=== PATIENT | male | born 1950 | race Caucasian/White ===

== ENCOUNTER 2020-09-05 14:01 | Outpatient (CLI) | payer MEDICARE, SELFPAY ==
--- NOTE | ~2020-09-05 | CT_ITS ---
EXAMINATION: CT chest abdomen wo con DATE: 09/05/2020 14:26 INDICATION: Solitary pulmonary nodule TECHNIQUE: Computed tomography (CT) of the chest and abdomen was performed without intravenous contra st. Automated exposure control and iterative reconstruction technique were employed. Exam dose: 534. 41 mGy-cm total exam DLP. COMPARISON: 08/17/2019 CT lung screening FINDINGS: CHEST CT: Stable mild bilateral apical pulmonary scarring since 08/17/2019. No pulmonary infiltrate or consolidation or pulmonary mass lesion is noted otherwise. There are very prominent calcified nodes in the right paratracheal and pretracheal and subcarinal are as in addition to calcified pulmonary granuloma and calcified hepatic and splenic granulomas, consist ent with old granulomatous disease. Thoracic aortic and great vessel and coronary artery calcifications. Normal heart size. No thoracic aortic aneurysm. No hilar or mediastinal mass lesion or lymphadenopath y. No pericardial or pleural effusion. ABDOMEN CT: The liver, gallbladder, spleen are unremarkable other than the multiple calcified hepatic and splenic granulomas as noted. No bile duct or pancreatic duct dilatation. No pancreatic mass lesion or calcif ication. Normal morphology of the adrenal glands. Probable 11 mm anterior mid right renal cyst Approximately 7 and 9 mm hyperdense lesions of the lateral aspect of the mid to lower left kidney, pr obably hyperdense cysts. No renal or proximal ureteral calculus or hydroureteronephrosis. There is extensive calcification of the abdominal aorta and common iliac arteries; no abdominal aorti c aneurysm. No intraperitoneal or retroperitoneal mass lesion or adenopathy or ascites. Diverticulosis of the colon; no CT evidence of diverticulitis. No bowel obstruction or intraperitonea l free air is evident. Very small fat-containing umbilical hernia. There are 2 focal sclerotic lesions along the anterior aspect of the right fifth rib which were not p resent on 12/13/2011. No other new sclerotic lesions are noted. If there is concern for osteosclerotic metastatic disease for example with prostate cancer, consider radiographic bone scan. Prominent degenerative disease and lower cervical spine. Stable small lucent area in the right posterior T1 vertebral body, not significant change since 2011, most consistent with benign process. IMPRESSION: Stable mild bilateral apical pulmonary scarring Old granulomatous disease Probable bilateral renal cysts Diverticulosis of the colon 2. Focal sclerotic lesions of the right fifth rib, not present on 12/13/2011. If clinically appropriat e, consider radionuclide bone scan to exclude osteosclerotic metastatic disease secondary to prostate cancer for example. Reviewed, dictated and finalized at [facility]. Reviewed, dictated and finalized at location A. SSAYIST IMPRESSION: Stable mild bilateral apical pulmonary scarring Old granulomatous disease Probable bilateral renal cysts Diverticulosis of the colon 2. Focal sclerotic lesions of the right fifth rib, not present on 12/13/2011. If clinically appropriate, consider radionuclide bone scan to exclude osteosclero tic metastatic disease secondary to prostate cancer for example.
== END 2020-09-05 14:02 | disposition home or self-care (01) ==
PROVIDERS: PCP Family Medicine; Visit Provider Nurse Practitioner
DX: R91.1 Solitary pulmonary nodule (principal); Z13.6 Encounter for screening for cardiovascular disorders; K57.30 Diverticulosis of large intestine without perforation or abscess without bleeding
CPT/HCPCS: 71250; 74150

== ENCOUNTER 2020-09-20 09:29 | Outpatient (CLI) | payer MEDICARE, SELFPAY ==
--- NOTE | ~2020-09-20 | NM_ITS ---
NM bone scan whole body INDICATION: Sclerotic lesion right fifth rib on recent CT TECHNIQUE: The patient was injected with 26.4 mCi Tc 99m HDP. Gamma camera images of the region of i nterest and whole body were obtained. COMPARISON: CT dated 09/05/2020 FINDINGS: There is mild focal uptake in ribs bilaterally. There is moderate symmetric uptake in the s houlders, wrists and hands as well as the right ankle and foot, likely secondary to degenerative join t disease. No other foci of abnormal uptake are identified. IMPRESSION: 1: Focal uptake in a few ribs bilaterally which may be due to posttraumatic change, although metasta tic disease is not excluded if there is a known history of malignancy (i.e. prostate cancer). 2: Multiple joints exhibit increased radiotracer uptake, consistent with degenerative joint disease. Reviewed, dictated and finalized at location A. RUMENT ASSEMBLY SUPERVISOR IMPRESSION: 1: Focal uptake in a few ribs bilaterally which may be due to posttraumatic ch lynda, although metastatic disease is not excluded if there is a known history o f malignancy (i.e. prostate cancer). 2: Multiple joints exhibit increased radiotracer uptake, consistent with degene rative joint disease.
== END 2020-09-20 09:30 | disposition home or self-care (01) ==
PROVIDERS: PCP Family Medicine; Visit Provider Nurse Practitioner
DX: M89.50 Osteolysis, unspecified site (principal)
CPT/HCPCS: 78306; A9561

== ENCOUNTER 2020-11-28 11:27 | Outpatient (CLI) | payer MEDICARE, SELFPAY ==
--- NOTE | ~2020-11-28 | XR_ITS ---
EXAMINATION: XR sinus min 3V EXAM DATE: 11/28/2020 11:44 INDICATION: R51.9 - Headache, unspecified,, progressing for last year. TECHNIQUE: Frontal, Lisha's, lateral, submentovertex projections of the paranasal sinuses. There is no prior study for comparison. FINDINGS: No appreciable sinus opacity but please note that mild mucoperiosteal disease difficult to detect by x-ray. No evidence of air-fluid levels on the submentovertex projection. Orbits and soft t issues are unremarkable. IMPRESSION: Unremarkable XR sinus min 3V exam. Reviewed, dictated and finalized at location A. ARD/STEWARDESS THIRD
== END 2020-11-28 11:28 | disposition home or self-care (01) ==
LOC: ANHIMG 11:30
PROVIDERS: PCP Family Medicine; Visit Provider Family Medicine
DX: R51.9 Headache, unspecified (principal)
CPT/HCPCS: 70220

== ENCOUNTER 2021-03-27 16:12 | Outpatient (CLI) | payer MEDICARE, SELFPAY ==
--- NOTE | ~2021-03-27 | XR_ITS ---
EXAMINATION: XR shoulder LT min 2V DATE: 03/27/2021 16:37 INDICATION: Left shoulder pain. TECHNIQUE: 4 views of left shoulder were obtained. COMPARISON: None. FINDINGS: Bone alignment is normal. No fracture. The glenohumeral joint is normal. There is moderate acromioclavicular joint osteoarthritis. There is calcific tendinitis of the rotator cuff. IMPRESSION: 1. Calcific tendinitis of the rotator cuff. 2. Moderate acromioclavicular joint osteoarthritis. Reviewed, dictated and finalized at location [facility].
[2021-03-27 17:30] LABS: Alanine Aminotransferase 21 U/L (4-50); Albumin Level 4.2 g/dL (3.5-5.1); Alkaline Phosphatase 71 U/L (38-126); Anion Gap 5 mmol/L (8-16); Aspartate Amino Transferase 32 U/L (17-59); Bilirubin,Total 0.3 mg/dL (0.2-1.3); Blood Urea Nitrogen 13 mg/dL (9-20); Carbon Dioxide 32 mmol/L (22-30); Chloride 99 mmol/L (98-107); Estimated Glomerular Filt Rate > 60; Glucose 80 mg/dL (75-110); Potassium 4.7 mmol/L (3.4-5.0); Sodium 136 mmol/L (137-145)
== END 2021-03-27 16:13 | disposition home or self-care (01) ==
LOC: ANHIMG 16:14
PROVIDERS: PCP Family Medicine; Visit Provider Family Medicine
DX: M19.012 Primary osteoarthritis, left shoulder (principal); E78.5 Hyperlipidemia, unspecified; M75.32 Calcific tendinitis of left shoulder
CPT/HCPCS: 36415; 73030; 80053

== ENCOUNTER 2021-10-31 01:45 | Day surgery (SDC) | payer MEDICARE, SELFPAY ==
[2021-10-22 09:35] VITALS: BMI 25.9
[2021-10-31 07:15] VITALS: BP 129/66; PULSE 100; RESP 18; TEMP 36.4; O2SAT 87; BMI 25.6
--- NOTE | 2021-10-31 07:28 | SUR.PREOP ---
0720-Pt O2 sat 87% at room air. Pt states he does not use O2 at home. Informed Dr. Cuevas. Orders received to place on 2L O2. Will continue to monitor.
--- NOTE | 2021-10-31 07:33 | P.PNAN_ITS ---
Anes - Initial Pre Proc Eval Procedure: Operation Date: 10/31/21 08:45 Proposed Procedures p Screening Colonoscopy - Edmundo Ramirez MD Date/Time: 10/31/21 07:33 Surgeon: Edmundo Ramirez MD Pre Op Diagnosis: hx of colon polyps Patient Data Age: 71 Gender: M Height: 1.8 m Weight: 83.4 kg Last Vital Signs Temp 36.4 C L 10/31/21 07:15 Pulse 100 10/31/21 07:15 Resp 18 10/31/21 07:15 BP 129/66 10/31/21 07:15 Pulse Ox 87 L 10/31/21 07:15 Allergies Allergy/AdvReac Type Severity Reaction Status Date / Time codeine Allergy Mild Other Verified 10/31/21 07:24 Home Medications Medication Instructions Recorded Confirmed Type aspirin [Adult Low Dose Aspirin] 81 mg PO DAILY 09/30/19 10/31/21 History atorvastatin 10 mg tablet 10 mg PO QHS #90 tablet 09/10/21 10/31/21 Rx fluticasone furoate 200 1 inh INHALATION DAILY #60 ea 10/01/21 10/31/21 Rx mcg-vilanterol 25 mcg/dose inhalation powder albuterol sulfate 90 mcg/actuation 2 inh INHALATION Q4-6H PRN #8.5 g 10/24/21 10/31/21 Rx aerosol inhaler Patient hx anesthesia problems: none Family hx anesthesia problems: none Results Review: All pre-operative results and documents have been reviewed as part of the pre-operative evaluation. [facility] Past Medical History Medical History Chronic headaches COPD with asthma History of colon polyps Hyperlipidemia Positive colorectal cancer screening using Cologuard test Pulmonary nodules stable on repeat CTs Wears glasses Family History Family History Mother Family history of malignant melanoma Social History Social History Smoking packs per day: 0.5 Smoking cigarettes per day: 10.0 Years smoked: 50 Smoking pack-years: 25.00 Smoking status: Current every day smoker Tobacco type: cigarettes and cigars Additional smoking assessment comments: 1 pack per day for approx 50 years Alcohol intake: current Drinks per week: 3 Substance use: never Substance use type: does not use Living arrangements: with family Gender identity (if verbalized by the patient): Male Spiritual care concerns: No Anes - Eval Final PreProcedure Day of Procedure 10/31/21 07:33 Patient weight: normal Heart: regular rate and rhythm Lungs: decreased breath sounds Airway: Mallampati scale class II Neurological: alert and oriented Last oral intake: >/= 8 hours ASA classification: III Emergent: no Anesthetic plan: proceed Anesthesia type and monitoring: general GIVS and standard monitoring Results Review: All pre-operative results and documents have been reviewed as part of the pre-operative evaluation. Informed Consent: The patient's anesthetic plan and its attendant risks and benefits were discussed with the patient/family/POA. Questions were solicited and answers provided to the satisfaction of the patient/family/POA.
[2021-10-31] MEDS: LACTATED RINGERS 1,000 ML 150 ML IV CONT (07:45)
--- NOTE | 2021-10-31 08:29 | PM.HPGS ---
History of Present Illness History of Present Illness Consent: Risks, benefits, and alternatives have been discussed and questions answered. Patient agrees to proceed with procedure. Chief complaint: hx of colon polyps Narrative: Navi Farris Sr. is a 71 year old male with large polyps removed 2 years ago. Review of Systems Constitutional: Constitutional: Denies headache(s) and Denies weakness Eyes: Eyes: Denies blurry vision ENT: Reports Normal hearing present, Denies headache(s) and Denies neck pain Cardiovascular: Cardiovascular: Denies chest pain and Denies dyspnea Respiratory: Respiratory: Denies dyspnea Gastrointestinal: Gastrointestinal: Reports no additional gastrointestinal complaints Genitourinary: Genitourinary: Denies dysuria Musculoskeletal: Musculoskeletal: Denies neck pain Integumentary/Breasts: Skin/Breast: Denies dry skin Neurologic: Reports Normal hearing present, Denies headache(s) and Denies weakness Psychiatric: Psychiatric: Denies anxiety Endocrine: Endocrine: Denies change in body appearance Hematologic/Lymphatic: Hematologic/Lymphatic: Denies easy bleeding Allergic/Immunologic: Allergic/Immunologic: Denies urticaria PMFSH Past Medical History Medical History (Updated 10/31/21 @ 08:30 by Edmundo Ramirez MD) Adenomatous colon polyp Chronic headaches COPD with asthma History of colon polyps Hyperlipidemia Positive colorectal cancer screening using Cologuard test Pulmonary nodules stable on repeat CTs Wears glasses Family History Family History Mother Family history of malignant melanoma Social History Social History Smoking packs per day: 0.5 Smoking cigarettes per day: 10.0 Years smoked: 50 Smoking pack-years: 25.00 Smoking status: Current every day smoker Tobacco type: cigarettes and cigars Additional smoking assessment comments: 1 pack per day for approx 50 years Alcohol intake: current Drinks per week: 3 Substance use: never Substance use type: does not use Living arrangements: with family Gender identity (if verbalized by the patient): Male Spiritual care concerns: No Meds Home Medications and Allergies Home Medications Medication Instructions Recorded Confirmed Type aspirin [Adult Low Dose Aspirin] 81 mg PO DAILY 09/30/19 10/31/21 History atorvastatin 10 mg tablet 10 mg PO QHS #90 tablet 09/10/21 10/31/21 Rx fluticasone furoate 200 1 inh INHALATION DAILY #60 ea 10/01/21 10/31/21 Rx mcg-vilanterol 25 mcg/dose inhalation powder albuterol sulfate 90 mcg/actuation 2 inh INHALATION Q4-6H PRN #8.5 g 10/24/21 10/31/21 Rx aerosol inhaler Allergies Allergy/AdvReac Type Severity Reaction Status Date / Time codeine Allergy Mild Other Verified 10/31/21 07:24 Vital Signs Vital Signs - 24 hr 10/31/21 07:15 Temperature 97.5 F L Pulse Rate 100 Respiratory Rate 18 Blood Pressure 129/66 Pulse Oximetry 87 L Exam Const: General: comfortable and no acute distress HENMT: General nose exam: Normal nares present Eyes: General: appearance normal, both eyes and all related structures Neck: Neck: no JVD Resp: Auscultation: clear to auscultation bilaterally Cardio: Rate: regular rate Rhythm: regular rhythm GI: Inspection: non-distended GI Palp: Yes Soft to palpation Skin: General skin exam: normal color Neuro: General: gait normal Speech: normal speech Extrem: General: normal to inspection Psych: Mental Status: mental status grossly normal Assessment and Plan Assessment and plan (1) Adenomatous colon polyp: Code(s): D12.6 - Benign neoplasm of colon, unspecified Status: Acute Assessment and Plan: colonoscopy
[2021-10-31 09:06] VITALS: BP 122/57; PULSE 90; RESP 18; O2SAT 94
[2021-10-31 09:16] VITALS: BP 120/82; PULSE 86; RESP 20; O2SAT 90
[2021-10-31 09:26] VITALS: BP 123/86; PULSE 88; RESP 20; O2SAT 86
--- NOTE | 2021-10-31 09:45 | SUR.PHASEII ---
PT 95% ON 3L, RUNNING 86% WHEN WEANED TO ROOM AIR, COUGHING OCCASIONALLY. PT DENIES DIFFICULTIES. PT STATES HE FEELS LIKE HE IS BREATHING LIKE NORMAL, HOW HE DOES AT HOME. DR IRIZARRY NOTIFIED AND NO NEW ORDERS, PT MAY BE DISCHARGED AND FOLLOW UP WITH PRIMARY DOCTOR. PT ENCOURAGED TO MONITOR SELF AND BREATHING AT HOME AND FOLLOW UP WITH PRIMARY DOCTOR. PT STATES UNDERSTANDING.
== END 2021-10-31 09:50 | disposition home or self-care (01) ==
PROVIDERS: PCP Family Medicine; Visit Provider Internal Medicine Gastroenterology
PROC: 0DJD8ZZ Inspection of Lower Intestinal Tract, Via Natural or Artificial Opening Endoscopic (ICD-10-PCS; CPT 45378; principal; 2021-10-31 08:45)
DX: Z12.11 Encounter for screening for malignant neoplasm of colon (principal); D12.2 Benign neoplasm of ascending colon; D12.3 Benign neoplasm of transverse colon; D12.4 Benign neoplasm of descending colon; K63.5 Polyp of colon; K57.30 Diverticulosis of large intestine without perforation or abscess without bleeding; K64.8 Other hemorrhoids; J44.9 Chronic obstructive pulmonary disease, unspecified; E78.5 Hyperlipidemia, unspecified; Z79.82 Long term (current) use of aspirin; Z79.51 Long term (current) use of inhaled steroids; F17.210 Nicotine dependence, cigarettes, uncomplicated; F17.290 Nicotine dependence, other tobacco product, uncomplicated
CPT/HCPCS: 45385; 88305; J2704; J7120

== ENCOUNTER 2021-11-02 12:53 | Emergency (ER) | payer MEDICARE, SELFPAY ==
--- NOTE | ~2021-11-02 | XR_ITS ---
XR chest 2V DATE: 11/02/2021 13:47 INDICATION: Cough TECHNIQUE: PA and lateral views COMPARISON: 08/18/2018 two-view chest 08/17/2019 CT lung screening FINDINGS: There is patchy consolidating infiltrate in the right upper lobe since prior examinations. The lungs are hyperinflated but otherwise clear of infiltrate or consolidation. No pleural fluid is n oted. No pneumothorax. Normal heart size. Aortic arch calcification. Calcified mediastinal nodes, consistent with old granul omatous disease. Diffuse osteopenia. IMPRESSION: Prominent right upper lobe infiltrate, new since prior examinations, likely due to pneumo aviva Bilateral hyperinflation, suggesting possible COPD Aortic atherosclerosis Old granulomatous disease Diffuse osteopenia Reviewed, dictated and finalized at location [facility]. TREATMENT TECHNICIAN IMPRESSION: Prominent right upper lobe infiltrate, new since prior examinations , likely due to pneumonia Bilateral hyperinflation, suggesting possible COPD Aortic atherosclerosis Old granulomatous disease Diffuse osteopenia
[2021-11-02 13:04] VITALS: BP 135/64; PULSE 84; RESP 16; TEMP 36.6; O2SAT 92
--- NOTE | 2021-11-02 13:42 | ED.URI ---
HPI - URI/Sore Throat General Chief Complaint: Upper Respiratory Infection Stated Complaint: COUGH/CONGESTION/SOB Source: patient Mode of arrival: ambulatory Limitations: no limitations History of Present Illness HPI Narrative: 71-year-old male with a history of COPD and chronic bronchitis presented for complaint of productive cough for over 1 week. He states he is producing a large amount of mucus and has difficulty sleeping at night due to the cough. Endorses some sinus congestion, increased shortness of breath, chills, and decreased activity. Patient is a half a pack per day smoker, but has not been smoking for at least a week. He states he had colonoscopy 3 days ago, and was told his oxygen was 90%. Has been using albuterol inhaler and Breo as directed. Of note he endorses dysuria, and is scheduled with a urologist in December for PSA of 7. Denies chest pain, hemoptysis, heart racing, nausea, vomiting, diarrhea, dizziness or syncope.. MD elicited complaint: cough Related Data Home Medications Medication Instructions Recorded Confirmed aspirin [Adult Low Dose Aspirin] 81 mg PO DAILY 09/30/19 10/31/21 Allergies Allergy/AdvReac Type Severity Reaction Status Date / Time codeine Allergy Mild Other Verified 10/31/21 07:24 Review of Systems Review of Systems: CONSTITUTIONAL: Endorses chills, Denies sweats, fever. EYES: Denies visual changes, redness, or discharge. ENT: Reports rhinorrhea, congestion CARDIOVASCULAR: Denies chest pain, palpitations, or edema. RESPIRATORY: Reports cough, dyspnea. GASTROINTESTINAL: Denies abdominal pain, nausea, vomiting, diarrhea SKIN: Denies rash or itching. MUSCULOSKELETAL: denies myalgia. NEUROLOGIC: Denies headache. [facility] Past Medical History Medical History (Updated 11/02/21 @ 14:11 by Carolyn Mathis APRN) Adenomatous colon polyp Chronic headaches COPD with asthma History of colon polyps Hyperlipidemia Positive colorectal cancer screening using Cologuard test Pulmonary nodules stable on repeat CTs Wears glasses Family History Family History Mother Family history of malignant melanoma Social History Social History Smoking packs per day: 0.5 Smoking cigarettes per day: 10.0 Years smoked: 50 Smoking pack-years: 25.00 Smoking status: Current every day smoker Tobacco type: cigarettes and cigars Additional smoking assessment comments: 1 pack per day for approx 50 years Alcohol intake: current Drinks per week: 3 Substance use: never Substance use type: does not use Gender identity (if verbalized by the patient): Male Spiritual care concerns: No Exam Narrative: GENERAL: Ill-appearing, nontoxic no acute distress. HEAD: Normocephalic EYES: PERRLA, conjunctivae clear ENT: Mucous membranes moist. TM pearly shah with dull light reflex bilaterally; no tragal tenderness. Oropharynx erythematous without lesions or exudate, no drooling, no hoarseness, no trismus, uvula midline. NECK: Supple. No lymphadenopathy CHEST: Expiratory Wheezing, No respiratory distress, speaks in full sentences. HEART: Regular rate and rhythm. No murmur heard. SKIN: Warm, dry, no rash. NEURO: Alert and oriented x3. PSYCH: Normal mood and affect Course Course Emergency Course: Reviewed xray with pt, abx and steroid prescribed, advised otc cough syrup prn. urine unremarkable, will culture given hx elevated psa. Patient is aware of diagnosis, understands and agrees to treatment plan. Anticipatory guidance given. Patient agrees to follow-up as directed and is aware of reasons to seek care at the emergency department. Portions of this record may have been created with voice recognition software Level of Care: Express Care Visit Vital Signs Vital signs: Vital Signs Temperature 98 F 11/02/21 13:04 Pulse Rate 84 11/02/21 13:04 Respiratory Rate 16 11/02/21 1
== END 2021-11-02 14:24 | disposition home or self-care (01) ==
PROVIDERS: Emergency Provider Nurse Practitioner Family; PCP Family Medicine
DX: J18.1 Lobar pneumonia, unspecified organism (principal); F17.210 Nicotine dependence, cigarettes, uncomplicated; F17.290 Nicotine dependence, other tobacco product, uncomplicated; J44.9 Chronic obstructive pulmonary disease, unspecified; E78.5 Hyperlipidemia, unspecified; Z79.82 Long term (current) use of aspirin
CPT/HCPCS: 71046; 81003; 99213; G0463

== ENCOUNTER 2022-08-08 10:20 | Emergency (ER) | payer MEDICARE, SELFPAY ==
[2022-08-08 10:28] VITALS: BP 126/58; PULSE 97; RESP 24; TEMP 36.6; O2SAT 94
--- NOTE | 2022-08-08 10:29 | ED.URI ---
HPI - URI/Sore Throat General Chief Complaint: Upper Respiratory Infection Stated Complaint: COUGH/CONGESTION/NOT SLEEPING Time Seen by Provider: 08/08/22 10:36 Source: patient and RN notes reviewed Mode of arrival: ambulatory Limitations: no limitations History of Present Illness HPI Narrative: 71-year-old male presents with concern for productive cough that started on Friday. He reports chills. Denies fever, sweats, nasal congestion or rhinorrhea. Reports he gets similar illness once a year MD elicited complaint: cough Related Data Home Medications Medication Instructions Recorded Confirmed aspirin 81 mg tablet,delayed 81 mg PO DAILY 09/30/19 03/14/22 release (Adult Low Dose Aspirin) fluticasone furoate 200 inhalation 08/08/22 mcg-vilanterol 25 mcg/dose inhalation powder (Breo Ellipta) Allergies Allergy/AdvReac Type Severity Reaction Status Date / Time codeine Allergy Mild Other Verified 08/08/22 10:27 Review of Systems Review of Systems: CONSTITUTIONAL: Reports malaise, chills. Denies sweats, or fever. EYES: Denies visual changes, redness, or discharge. ENT: Denies rhinorrhea, congestion, sinus pain, otalgia and sore throat. CARDIOVASCULAR: Denies chest pain, palpitations, or edema. RESPIRATORY: Reports cough. Denies dyspnea. GASTROINTESTINAL: Denies abdominal pain, nausea, vomiting, diarrhea SKIN: Denies rash or itching. MUSCULOSKELETAL: Denies myalgia. NEUROLOGIC: Denies headache. All systems reviewed & are unremarkable except as noted in HPI and below PMFSH Past Medical History Medical History Adenomatous colon polyp Chronic headaches Community acquired pneumonia (~10/2021) COPD with asthma Erectile dysfunction History of colon polyps Hyperlipidemia Positive colorectal cancer screening using Cologuard test Prostate cancer (~01/2022) Pulmonary nodules stable on repeat CTs Wears glasses Family History Family History Mother Family history of malignant melanoma Social History Social History Smoking packs per day: 0.25 Smoking cigarettes per day: 5.0 Years smoked: 50 Smoking pack-years: 12.50 Smoking status: Current some day smoker Tobacco type: cigarettes and cigars Additional smoking assessment comments: 1 pack per day for approx 50 years Alcohol intake: current Drinks per week: 3 Substance use: never Substance use type: does not use Gender identity (if verbalized by the patient): Male Spiritual care concerns: No Comments At time of signature, agree with nursing past medical, surgical, social and family history. There is no relevant family history pertinent to the presenting complaint Exam Narrative: GENERAL: Well-appearing, well-nourished, and in no acute distress. HEAD: Normocephalic EYES: PERRLA, conjunctivae clear ENT: Nares clear. Mucous membranes moist. TM pearly shah with dull light reflex bilaterally; no tragal tenderness. Oropharynx not erythematous without lesions. Tonsils not enlarged and without exudate, no drooling, no hoarseness, no trismus, uvula midline. NECK: Supple. No lymphadenopathy CHEST: Scattered rhonchi, expiratory wheeze, aeration poor. No Rales, or stridor. No respiratory distress, speaks in full sentences. HEART: Regular rate and rhythm. No murmur heard. SKIN: Warm, dry, no rash. NEURO: Alert and oriented x3. PSYCH: Normal mood and affect Course Course Emergency Course: Patient is aware of diagnosis, understands and agrees to treatment plan. Anticipatory guidance given. Patient agrees to follow-up as directed and is aware of reasons to seek care at the emergency department. Portions of this record may have been created with voice recognition software Level of Care: Express Care Visit Reevaluation(s) Reevaluation #1: Aeration improved, lung sounds
[2022-08-08] MEDS: ALBUTEROL SULFATE NEB 2.5 MG/3 ML INH INHALATION (10:48)
[2022-08-08] MEDS: IPRATROPIUM BR 0.02% INH SOLN 0.5 MG/2.5 ML VIAL INHALATION (10:49)
[2022-08-08 10:50] VITALS: PULSE 84; RESP 20; O2SAT 94
== END 2022-08-08 11:19 | disposition home or self-care (01) ==
PROVIDERS: Emergency Provider Nurse Practitioner; PCP Family Medicine
DX: J44.1 Chronic obstructive pulmonary disease with (acute) exacerbation (principal); E78.5 Hyperlipidemia, unspecified; Z85.46 Personal history of malignant neoplasm of prostate; Z79.82 Long term (current) use of aspirin
CPT/HCPCS: 87804; 94640; 99213; G0463

== ENCOUNTER 2022-09-24 12:49 | Outpatient (CLI) | payer MEDICARE, SELFPAY ==
--- NOTE | ~2022-09-24 | CT_ITS ---
EXAMINATION: CT lung screening DATE: 09/24/2022 13:09 INDICATION: Personal history of nicotine dependence, current smoker with 50 pack year history TECHNIQUE: Computed tomography (CT) of the chest was performed without intravenous contrast. The dose -length product (DLP) was 103.55 mGy-cm. Automated exposure control and iterative reconstruction tech [email or web address] were employed. COMPARISON: 08/17/2019 FINDINGS: There is mild emphysema. Scarring is noted in the lung apices. The lungs are free of acute opacities. No pleural effusion or pneumothorax. No pathologically enlarged thoracic lymph nodes are i dentified. The heart size is normal. There are bulky calcified left hilar and mediastinal lymph nodes , consistent with old granulomatous disease. Punctate calcifications in otherwise normal appearing li cory and spleen likely represent healed granulomatous disease. IMPRESSION: 1. Lung-RADS category 2: Benign appearance or behavior. Continue annual screening with noncontrast lo w-dose chest CT in 12 months. Reviewed, dictated and finalized at location L. ESTATE ASSESSOR IMPRESSION: 1. Lung-RADS category 2: Benign appearance or behavior. Continue annual screeni ng with noncontrast low-dose chest CT in 12 months.
== END 2022-09-24 12:50 | disposition home or self-care (01) ==
PROVIDERS: PCP Family Medicine; Visit Provider Family Medicine
DX: Z12.2 Encounter for screening for malignant neoplasm of respiratory organs (principal); F17.210 Nicotine dependence, cigarettes, uncomplicated
CPT/HCPCS: 71271

== ENCOUNTER 2023-02-27 09:05 | Emergency (ER) | payer MEDICARE, SELFPAY ==
--- NOTE | ~2023-02-27 | XR_ITS ---
EXAMINATION: XR chest 2V DATE: 02/27/2023 09:36 INDICATION: Shortness of breath. Cough. TECHNIQUE: Frontal and lateral views of the chest were obtained on 3 radiographs. COMPARISON: Chest 2 views 11/02/2021, chest CT 09/24/2022 FINDINGS: The lungs are hyperexpanded with reticular opacities, consistent with emphysema. There are mild airspace opacities in right lower lobe. No pleural effusion or pneumothorax. The heart size is n ormal. Calcified mediastinal lymph nodes are consistent with old granulomatous disease. IMPRESSION: 1. Mild airspace opacities in right lower lobe, consistent with atelectasis versus pneumonia. 2. Emphysema. Reviewed, dictated and finalized at location A. IMPRESSION: 1. Mild airspace opacities in right lower lobe, consistent with atelectasis cory laurence pneumonia. 2. Emphysema.
[2023-02-27 09:18] VITALS: BP 162/58; PULSE 79; RESP 24; TEMP 37.3; O2SAT 86
--- NOTE | 2023-02-27 09:40 | ED.URI ---
HPI - URI/Sore Throat General Chief Complaint: Shortness of Breath/Dyspnea Stated Complaint: shortness of breath,cough,congestion Time Seen by Provider: 02/27/23 09:23 Source: patient and RN notes reviewed Mode of arrival: ambulatory Limitations: no limitations History of Present Illness HPI Narrative: Patient presents today complaining of a 2-3 day history productive cough, shortness of breath that is worse with nasal congestion. Patient states his home pulse ox showed 84% this morning. History of COPD. He has been using his albuterol inhaler, which helps minimally. He also uses Breo. He has not been taking any [id number] treatment for his symptoms prior to arrival. Related Data Home Medications Medication Instructions Recorded Confirmed aspirin 81 mg tablet,delayed 81 mg PO DAILY 09/30/19 09/12/22 release (Adult Low Dose Aspirin) Allergies Allergy/AdvReac Type Severity Reaction Status Date / Time codeine Allergy Mild Other Verified 02/27/23 09:14 Review of Systems Review of Systems: CONSTITUTIONAL: Denies body aches, fever, chills, or sweats. EYES: Denies visual changes, redness, or discharge. ENT: Denies rhinorrhea, sore throat, or otalgia.+ congestion CARDIOVASCULAR: Denies chest pain, palpitations, or edema. RESPIRATORY: + cough, shortness of breath GASTROINTESTINAL: Denies abdominal pain, nausea, vomiting, or diarrhea. GENITOURINARY: Denies dysuria or hematuria. SKIN: Denies rash, itching, or wounds. MUSCULOSKELETAL: Denies back pain, joint pain, or myalgia. NEUROLOGIC: Denies headache, numbness, tingling, or weakness. PSYCH: Denies depression or anxiety. [facility] Past Medical History Medical History Community acquired pneumonia (~10/2021) COPD with asthma Erectile dysfunction History of colon polyps Hyperlipidemia Positive colorectal cancer screening using Cologuard test Prostate cancer (~01/2022) Pulmonary nodules stable on repeat CTs Wears glasses Family History Family History Mother Family history of malignant melanoma Social History Social History Smoking packs per day: 0.25 Smoking cigarettes per day: 5.0 Years smoked: 50 Smoking pack-years: 12.50 Smoking status: Current some day smoker Tobacco type: cigarettes and cigars Additional smoking assessment comments: 1 pack per day for approx 50 years Alcohol intake: current Drinks per week: 3 Substance use: never Substance use type: does not use Lack of Transportation: No Lack of Food: Never True Current Housing: I Have Housing Concerned About Future Housing: No Difficulty Paying Gas/Electric Bills: No Difficulty Paying for Meds: No Currently Unemployed: No Education: High School Diploma/GED Difficulty w/ Childcare or Family Care: No Living arrangements: with family Additional living arrangements comments: Occupation/Education: retired Gender identity (if verbalized by the patient): Male Sexual Orientation (if Verbalized by the Patient): Straight or Heterosexual Spiritual care concerns: No Agree to blood products: Yes Comments At time of signature, I have reviewed and agree with nursing past medical, surgical, social and family history unless otherwise noted. Please see nursing chart for further information. There is no relevant family history pertinent to the presenting complaint Exam Narrative: GENERAL: Well-appearing, well-nourished, and in no acute distress. HEAD: Normocephalic, atraumatic. EYES: EOMI. No redness or drainage. Conjunctivae normal. ENT: Mucous membranes pink and moist. Nares congested. No rhinorrhea. NECK: Normal AROM. Supple. No lymphadenopathy. CHEST: No respiratory distress. Lungs diminished. Expiratory wheezing in the upper lobes. HEART: Regular rate an
--- NOTE | 2023-02-27 09:42 | PC.NURSE ---
0942 Patient returned from xray and connected to oxygen 2L/min-pulse ox increased to 90%.
[2023-02-27] MEDS: IPRATROPIUM BR 0.02% INH SOLN 0.5 MG/2.5 ML VIAL INHALATION (09:59)
[2023-02-27] MEDS: ALBUTEROL SULFATE NEB 2.5 MG/3 ML INH INHALATION (09:59)
[2023-02-27 10:00] VITALS: PULSE 68; RESP 24; O2SAT 93
[2023-02-27 10:20] VITALS: PULSE 72; RESP 20; O2SAT 97
== END 2023-02-27 10:35 | disposition home or self-care (01) ==
PROVIDERS: Emergency Provider Nurse Practitioner; PCP Family Medicine
DX: J44.1 Chronic obstructive pulmonary disease with (acute) exacerbation (principal); J18.1 Lobar pneumonia, unspecified organism; F17.210 Nicotine dependence, cigarettes, uncomplicated; F17.290 Nicotine dependence, other tobacco product, uncomplicated; E78.5 Hyperlipidemia, unspecified; Z85.46 Personal history of malignant neoplasm of prostate; Z79.82 Long term (current) use of aspirin
CPT/HCPCS: 71046; 94640; 99213; G0463

== ENCOUNTER 2023-05-08 09:59 | Outpatient (CLI) | payer MEDICARE, SELFPAY ==
--- NOTE | 2023-05-13 13:50 | P.PCNPFT_ITS ---
PFT Procedure Performed PFT Procedure Performed Spirometry with Pre/Post Bronchodilator Plethysmography (Lung Vol) Diffusing Cap (DLCO) Flow Vol Loop PFT Interpretation DOS: 05/08/2023 REQUESTING: Jose Garvin MD REASON FOR TESTING: COPD/hypoxia PULMONARY FUNCTION TESTS Results are reliable and reproducible. Spirometry: FEV1 is 1.51 L, 45% predicted, severely reduced. FVC is 3.55 L, 79%, within the normal range. FEV1/ FVC ratio 43%, reduced, consistent with airflow obstruction. After bronchodilator, there is a 7% drop in the FEV1, 1.40 L, 41%. There is a 6% drop in the FVC, 3.35 L, 74%. The ratio remains reduced, 42%. Lung volumes: Total lung capacity 9.54 L, 128%, elevated, consistent with mild hyperinflation. RV is 5.80 L, 225%, severely increased consistent with severe air trapping. RV/TLC is 61%, increased. Airway resistance is elevated, 4.02, 376%. Diffusion: DLCO is 18.9, 71%, low end of normal. DLCO/VA is 4.33, 114%, normal. Flow volume loop: Severe coving of the expiratory limb consistent with airflow obstruction. IMPRESSION: Severe obstructive ventilatory impairment without response to bronchodilator, mild hyperinflation, severe air trapping, borderline diffusion impairment which corrects for alveolar volume. Lack of response to bronchod ilator should not preclude use if clinically indicated. Comparison to 06/03/2017 PFT showed almost same results except that the prior study showed excellent response to bronchodilator, still had a severe obstructive ventilatory impairment; hyperinflation is new, increased RV and RV/TLC, increased Raw, normal DLCO. Olive Moseley MD
--- NOTE | 2023-05-13 14:05 | WPDSIXMINUTE ---
Six Minute Walk Procedure Procedure Performed Pulmonary Stress Test (6 min walk) Six Minute Walk Six Minute Walk: DATE OF SERVICE : 05/08/2023 REQUESTING: Jose Garvin MD REASON FOR TESTING: COPD/hypoxia SIX MINUTE WALK This test was conducted per ATS guidelines. The patient walked while breathing room air, and he did not use any walking aids. The initial saturation was 93%, and initial heart rate was 60 beats per minute. The patient walked with a 15 second rest at the 3 minute geovani. Even with the rest the patient completed 1200 ft/ 365.7 m. Saturation at the end of the test is 90%. Heart rate at the end of the study was 72 beats per minute. The lowest saturation recorded during this walk was 89% and the highest heart rate was 78 beats per minute at the 3 minute geovani. IMPRESSION: This is a normal study. The patient did not require supplemental oxygen with exertion. There is mild desaturation without hypoxemia. Distance walked is adequate for age. Olive Moseley MD
== END 2023-05-08 10:00 | disposition home or self-care (01) ==
PROVIDERS: PCP Family Medicine; Visit Provider Family Medicine
DX: J44.9 Chronic obstructive pulmonary disease, unspecified (principal); R09.02 Hypoxemia; R94.2 Abnormal results of pulmonary function studies
CPT/HCPCS: 94060; 94618; 94726; 94729

== ENCOUNTER → 2023-09-16 11:02 | Outpatient (CLI) | payer MEDICARE, SELFPAY ==
--- NOTE | ~2023-09-16 | XR_ITS ---
Clinical Indication: Upper respiratory infection PA and lateral views of the chest: Comparison: 02/27/2023 Findings: The lungs are clear, without evidence of focal consolidation or pleural effusion. Cardiome diastinal silhouette is within normal limits. Stable large calcified right paratracheal/right hilar l ymph nodes. Bones and soft tissues are unremarkable. Impression: No acute abnormality. Stable large calcified right hilar/right paratracheal lymph nodes. Reviewed, dictated and finalized at location . MANAGER Impression: No acute abnormality. Stable large calcified right hilar/right paratracheal lymph nodes.
== END ==
PROVIDERS: PCP Family Medicine; Visit Provider Family Medicine
DX: J06.9 Acute upper respiratory infection, unspecified (principal)
CPT/HCPCS: 71046

== ENCOUNTER 2023-09-18 08:49 | Inpatient (IN) | payer MEDICARE, SELFPAY ==
[2023-09-18] VITALS (20 sets, daily range): BP systolic 100–153; BP diastolic 42–66; PULSE 87–116; RESP 16–26; TEMP 37.2–39.1; O2SAT 86–100; BMI 28.1
--- NOTE | ~2023-09-18 | XR_ITS ---
EXAMINATION: XR chest 1V portable INDICATION: Hypoxia TECHNIQUE: Portable AP chest at 0914 hours COMPARISON: 09/16/2023 FINDINGS: There are airspace opacities of the right lung base. No pleural effusion or pneumothorax. T he cardiomediastinal silhouette is stable. Calcified right paratracheal lymph nodes are consistent wi th old granulomatous disease. IMPRESSION: 1. Right basilar airspace opacity, consistent with atelectasis versus pneumonia. Reviewed, dictated and finalized at location D. ROOM ATTENDANT IMPRESSION: 1. Right basilar airspace opacity, consistent with atelectasis versus pneumonia .
--- NOTE | ~2023-09-18 | CT_ITS ---
Clinical Indication: Shortness of breath, chest pain CT Scan of the Chest with Contrast: Technique: Contiguous sections were acquired throughout the chest after intravenous administration of 100 cc of Omnipaque 350. Dose reduction technique was used on this scan by utilizing automated expos ure control and iterative reconstruction technique. The dose-length product (DLP) was 498.41 mGy-cm. COMPARISON: 09/24/2022 Findings: There are multiple mildly enlarged mediastinal and right hilar lymph nodes. There is no filling defec t in the pulmonary arterial tree to suggest pulmonary embolus. There is no evidence of aortic dissect ion or aneurysm. There is no evidence of pleural or pericardial effusion. Stable small biapical nodules present. There is patchy right lower lobe consolidation, compatible wit h pneumonia. Images through the upper abdomen reveal calcified splenic granulomas. Impression: No evidence of pulmonary embolus, aortic dissection, or aortic aneurysm. Right lower lobe pneumonia. Mildly enlarged mediastinal and hilar lymph nodes, presumably reactive. Stable subcentimeter biapical pulmonary nodules, likely benign. Reviewed, dictated and finalized at [facility]. CH AND LANGUAGE ASSISTANT Impression: No evidence of pulmonary embolus, aortic dissection, or aortic aneurysm. Right lower lobe pneumonia. Mildly enlarged mediastinal and hilar lymph nodes, presumably reactive. Stable subcentimeter biapical pulmonary nodules, likely benign.
--- NOTE | 2023-09-18 09:06 | ECG_ITS ---
Measurements Intervals [place] Rate: 102 P: 62 IL: 132 QRS: 113 QRSD: 96 T: 56 QT: 286 QTc: 372 Interpretive Statements SINUS TACHYCARDIA LEFTWARD AXIS INCOMPLETE RIGHT BUNDLE BRANCH BLOCK [90+ ms QRS DURATION, TERMINAL R IN V1/V2, 40+ ms S IN I/aVL/V4/V5/V6] ABNORMAL ECG NO PREVIOUS ECG AVAILABLE FOR COMPARISON Electronically Signed On 09-18-2023 17:46:09 EXPANDED FUNCTION DENTAL ASSISTANT by Edy Victoria M.D.
--- NOTE | 2023-09-18 09:19 | ED.SOB ---
HPI - SOB/Dyspnea General Chief Complaint: Shortness of Breath/Dyspnea <Elyse Martínez PA-C - Last Filed: 09/18/23 19:09> Stated Complaint: O2 SAT LOW <ILDA Venegas Last Filed: 09/18/23 19:09> Time Seen by Provider: 09/18/23 08:56 <ILDA Venegas Last Filed: 09/18/23 19:09> Source: patient <ILDA Venegas Last Filed: 09/18/23 19:09> Mode of arrival: ambulatory <ILDA Venegas Last Filed: 09/18/23 19:09> Limitations: no limitations <ILDA Venegas Last Filed: 09/18/23 19:09> History of Present Illness HPI Narrative: Patient is a 72-year-old male, with past medical history of COPD, former smoker, who presents to the ED with report of shortness breath. Patient reports he has not felt well since Friday. He complains of productive cough, congestion, sore throat, shortness of breath. He was seen by his primary care doctor on Friday and had a negative chest x-ray at that time. Started on steroids for possible COPD exacerbation. Patient reports he had trouble sleeping last night due to persistent cough. He checked his oxygen on a home pulse oximeter this morning and noted to be low down to 84% at home. He then prompted here. Patient reports previous home O2 use, but states he was taken off of this in May due to quiting smoking and persistently adequate oxygen saturations. Patient denies chest pain. Denies known fevers, though was reported to be febrile upon arrival. Denies sick contacts. Denies abdominal pain, nausea, vomiting. Denies lower ext pain/swelling. <ILDA Venegas Last Filed: 09/18/23 19:09> Related Data Home Medications: Home Medications Medication Instructions Recorded Confirmed aspirin 81 mg tablet,delayed 81 mg PO DAILY 09/30/19 09/18/23 release (Adult Low Dose Aspirin) <ILDA Venegas Last Filed: 09/18/23 19:09> Allergies/Adverse Reactions: Allergies Allergy/AdvReac Type Severity Reaction Status Date / Time codeine Allergy Mild Other Verified 09/18/23 16:19 <Elyse Martínez PA-C - Last Filed: 09/18/23 19:09> Review of Systems Review of Systems: CONSTITUTIONAL: See HPI. ENT: See HPI. CARDIOVASCULAR: Denies chest pain, palpitations, or edema. RESPIRATORY: See HPI. GASTROINTESTINAL: Denies abdominal pain, nausea, vomiting. NEUROLOGIC: Denies headache, dizziness, numbness, or weakness. <Elyse Martínez PA-C - Last Filed: 09/18/23 19:09> All systems reviewed & are unremarkable except as noted in HPI and below <Elyse Martínez PA-C - Last Filed: 09/18/23 19:09> PMFSH Past Medical History Medical History: Medical History Community acquired pneumonia (~10/2021) COPD with asthma Erectile dysfunction History of colon polyps History of colon polyps Hyperlipidemia Positive colorectal cancer screening using Cologuard test Prostate cancer (~01/2022) Pulmonary nodules stable on repeat CTs Wears glasses <Elyse Martínez PA-C - Last Filed: 09/18/23 19:09> Family History Family History: Family History Mother Family history of malignant melanoma <Elyse Martínez PA-C - Last Filed: 09/18/23 19:09> Social History Social History: Social History Smoking packs per day: 0.75 Smoking cigarettes per day: 15.0 Years smoked: 50 Smoking pack-years: 37.50 Smoking status: Former smoker Tobacco type: cigarettes and cigars Smoking end date: 06/05/23 Additional smoking assessment comments: 1 pack per day for approx 50 years Alcohol intake: current Drinks per week: 14 Substance use: never Substance use type: does not use Do You Feel Safe in your Home?: Yes Lack of Transportation: No Lack of
[2023-09-18 09:27] LABS: Basophils Percent Auto 0.2 % (0.2-1.2); Eosinophils Absolute Auto 0.2 K/mm3 (0-0.3); Eosinophils Percent Auto 2.4 % (0-4.4); Hematocrit 43.7 % (42.0-52.0); Hemoglobin 14.4 g/dL (14.0-18.0); Immature Granulocyte Absolute 0.04 K/mm3 (0.00-0.031); Immature Granulocyte Percent A 0.5 % (0-0.5); Lymphocytes Absolute Auto 1.41 K/mm3 (0.9-3.2); Lymphocytes Percent Auto 17.6 % (18.3-44.2); Mean Corpuscular Hemoglobin 33.3 pg (26-34); Mean Corpuscular Volume 101.2 fl (80-100); Mean Platelet Volume 9.1 fl (7.4-10.4); Monocytes Absolute Auto 0.9 K/mm3 (0.1-0.6); Monocytes Percent Auto 11.6 % (2.6-8.5); Neutrophils Absolute Auto 5.4 K/mm3 (1.3-6.7); Neutrophils Percent Auto 67.7 % (45.5-73.1); Platelet Count Result 177 k/mm3 (150-375); Red Blood Count 4.32 M/mm3 (4.6-6.20); Red Cell Distribution Width 13.3 % (11.5-14.5)
[2023-09-18 09:42] LABS: Partial Thromboplastin Time 32.5 SECONDS (22.3-36.8); Prothrombin Time 13.5 Seconds (11.1-14.7)
[2023-09-18 09:43] LABS: Lactic Acid Reflex 1.4 mmol/L (0.7-2.0)
[2023-09-18 09:45] LABS: Alanine Aminotransferase 25 U/L (6-50); Albumin Level 4.3 g/dL (3.5-5.1); Alkaline Phosphatase 82 U/L (38-126); Anion Gap 7 mmol/L (8-16); Aspartate Amino Transferase 45 U/L (17-59); Bilirubin,Total 0.6 mg/dL (0.2-1.3); Blood Urea Nitrogen 15 mg/dL (9-20); CRP 4.6 mg/dL (<1.0); Calcium 8.7 mg/dL (8.4-10.2); Carbon Dioxide 29 mmol/L (22-30); Chloride 92 mmol/L (98-107); Estimated CRCL calculation 66 ml/min; Estimated Glomerular Filt Rate > 60; Glucose 112 mg/dL (65-110); Potassium 4.5 mmol/L (3.4-5.0); Sodium 128 mmol/L (137-145)
[2023-09-18] MEDS: LEVALBUTEROL NEB 1.25 MG/3 ML 2.5 MG INHALATION (09:46)
[2023-09-18] MEDS: IPRATROPIUM BR 0.02% INH SOLN 0.5 MG/2.5 ML VIAL 1.5 MG INHALATION (09:46)
[2023-09-18] MEDS: ACETAMINOPHEN 500 MG TABLET 1000 MG PO (09:51)
[2023-09-18 09:57] LABS: NT Pro B Type Natriuretic Pept 598 pg/mL (19.9-100); Troponin I < 0.012 ng/mL (0.000-0.034)
[2023-09-18] MEDS: SODIUM CHLORIDE 0.9% IV 1,000 ML 999 ML IV CONT ×2 (10:12→11:21)
[2023-09-18 10:17] LABS: Influenza A QL RT-PCR Negative (Negative); Influenza B QL RT-PCR Positive (Negative); RSV RNA, RT-PCR Negative (Negative); SARS-CoV-2 RNA PCR Negative (Negative)
[2023-09-18 10:28] LABS: Appearance Urine Clear (Clear); Bacteria Urine None Seen /hpf; Bilirubin Urine Negative (Negative); Blood Urine Negative (Negative); Color Urine Dark Yellow (Yellow); Glucose Urine UA Negative (Negative); Ketones Urine Negative (Negative); Leukocyte Esterase Ur Negative LEU/UL (Negative); Nitrate Urine Negative (Negative); Non Pathogenic Casts 0-2; Protein Urine 2+ mg/dL (Negative); Specific Grav Ur 1.025 (1.001-1.035); Squamous Epithelial Cell Urine None seen /hpf (Few); WBC Urine 0-5 /hpf
[2023-09-18 10:37] LABS: Add Urine Microscopic? YES
[2023-09-18] MEDS: AZITHROMYCIN 500 MG/NS 250 ML 500 MG/250 ML BAG 250 MG IVPB (11:12)
--- NOTE | 2023-09-18 13:24 | PC.NURSE ---
This RN called dietary at this time to order a lunch tray for pt.
--- NOTE | 2023-09-18 15:30 | ADMGEN ---
This patient, Navi Farris, was admitted to Medical Room 249-01. Patient/family oriented to hospital policies and general routines including ID bracelet, bed and alarms, visiting hours, pain management, procedures, bathroom and other care routines, personal items, smoking policy, room service/diet, and visiting hours. Information on how to activate the Rapid Response Team has been discussed. Patient/Family are encouraged to report perceived risks to care and to ask questions if they do not understand what they are told or what they should do.
--- NOTE | 2023-09-18 15:59 | PM.IMHP ---
H&P: HPI History of Present Illness Date/Time: 09/18/23 15:59 Chief Complaint: Cough, SOB Narrative: 72 y/o M presents here with productive cough and SOB with PMH of COPD and former smoker. Patient presented to the emergency department with worsening productive cough and shortness of breath. Symptoms began on Friday morning when he woke up with an intermittent productive cough and a sore/scratchy throat. Over the last few days the symptoms have worsened, primarily the cough and shortness of breath with peak last night. Sputum has been excessive and whitish per patient. States the shortness of breath and cough were so severe that he could not sleep or tolerate lying flat. He has a previous history of supplemental O2 requirement, however he was able to come off of the supplemental oxygen after he stops smoking in May of 2023. Denies any current fevers, chest pain, chills, N/V/D. Arrived to the ED with sat of 86% on RA, improved on 2L NC. ED workup revealed patient to be influenza B positive and hyponatremia. CXR showed right basilar airspace opacity, consistent with atelectasis versus pneumonia. CTA of chest showed no PE, right lower lobe pneumonia, mildly enlarged mediastinal and hilar lymph nodes presumably reactive, and stable pulmonary nodules. Review of Systems Review of Systems: All systems reviewed & are unremarkable except as noted in HPI and below [facility] Past Medical History Medical History Community acquired pneumonia (~10/2021) COPD with asthma Erectile dysfunction History of colon polyps History of colon polyps Hyperlipidemia Positive colorectal cancer screening using Cologuard test Prostate cancer (~01/2022) Pulmonary nodules stable on repeat CTs Wears glasses Family History Family History Mother Family history of malignant melanoma Social History Social History Smoking packs per day: 0.75 Smoking cigarettes per day: 15.0 Years smoked: 50 Smoking pack-years: 37.50 Smoking status: Former smoker Tobacco type: cigarettes and cigars Smoking end date: 06/05/23 Additional smoking assessment comments: 1 pack per day for approx 50 years Alcohol intake: current Drinks per week: 14 Substance use: never Substance use type: does not use Do You Feel Safe in your Home?: Yes Lack of Transportation: No Lack of Food: Never True Current Housing: I Have Housing Concerned About Future Housing: No Difficulty Paying Gas/Electric Bills: No Difficulty Paying for Meds: No Currently Unemployed: No Education: High School Diploma/GED Difficulty w/ Childcare or Family Care: No Living arrangements: with family Additional living arrangements comments: Occupation/Education: retired Gender identity (if verbalized by the patient): Male Sexual Orientation (if Verbalized by the Patient): Straight or Heterosexual Spiritual care concerns: No Agree to blood products: Yes Meds Home Medications and Allergies Home Medications Medication Instructions Recorded Confirmed Type aspirin 81 mg tablet,delayed 81 mg PO DAILY 09/30/19 09/18/23 History release (Adult Low Dose Aspirin) tadalafil 20 mg tablet (Cialis) 20 mg PO DAILY PRN sexual activity 03/14/22 09/18/23 Rx #30 tabs albuterol sulfate 2.5 mg/3 mL 2.5 mg (3 mL) inhalation Q4-6H PRN 03/06/23 09/18/23 Rx (0.083 %) solution for nebulization shortness of breath or wheezing #180 mL ipratropium bromide 0.02 % 2.5 ml inhalation Q6H PRN 03/06/23 09/18/23 Rx solution for inhalation shortness of breath or wheezing #150 mL albuterol sulfate 90 mcg/actuation 2 inh inhalation Q4-6H PRN 04/11/23 09/18/23 Rx aerosol inhaler shortness of breath or wheezing #8.5 grams atorvastatin 10 mg tablet 10 mg PO .QOD #45 tabs 05/23/23 09/18/23 R
[2023-09-18 19:09] LABS: Sodium Urine Random 75 meq/L
[2023-09-18] MEDS: MELATONIN 3 MG TABLET PO (20:54)
[2023-09-18] MEDS: ACETAMINOPHEN 325 MG TABLET 650 MG PO (20:55)
[2023-09-18] MEDS: BENZOCAINE/MENTHOL (*BKC) 18 EA LOZENGE 1 LOZENGE PO (20:56)
[2023-09-19] VITALS (15 sets, daily range): BP systolic 103–125; BP diastolic 46–63; PULSE 71–94; RESP 18–22; TEMP 36–36.4; O2SAT 94–97
[2023-09-19 08:33] LABS: Hematocrit 40.4 % (42.0-52.0); Hemoglobin 13.2 g/dL (14.0-18.0); Mean Corpuscular HGB Conc 32.7 g/dl (32-36); Mean Corpuscular Hemoglobin 33.2 pg (26-34); Mean Corpuscular Volume 101.8 fl (80-100); Mean Platelet Volume 9.2 fl (7.4-10.4); Platelet Count Result 138 k/mm3 (150-375); Red Blood Count 3.97 M/mm3 (4.6-6.20); Red Cell Distribution Width 13.6 % (11.5-14.5); White Blood Count 7.5 K/mm3 (4.5-10.0)
[2023-09-19 08:40] LABS: Anion Gap 6 mmol/L (8-16); Blood Urea Nitrogen 15 mg/dL (9-20); Calcium 8.2 mg/dL (8.4-10.2); Carbon Dioxide 27 mmol/L (22-30); Chloride 95 mmol/L (98-107); Estimated CRCL calculation 81 ml/min; Estimated Glomerular Filt Rate > 60; Glucose 91 mg/dL (65-110); Potassium 4.3 mmol/L (3.4-5.0); Sodium 128 mmol/L (137-145)
[2023-09-19] MEDS: FLUTICASONE/SALMETEROL 115-21 MCG INHALER 1 PUFF 2 PUFF INHALATION ×2 (08:48→21:07)
[2023-09-19] MEDS: BENZONATATE 100 MG CAPSULE PO ×3 (09:22→18:07)
[2023-09-19] MEDS: ATORVASTATIN 10 MG TABLET PO (09:22)
[2023-09-19] MEDS: predniSONE 50 MG TABLET PO (09:22)
[2023-09-19] MEDS: ENOXAPARIN 40 MG/0.4 ML SYRINGE SUB-Q (09:25)
[2023-09-19] MEDS: ASPIRIN 81 MG ENTERIC TABLET PO (09:27)
[2023-09-19] MEDS: AZITHROMYCIN 500 MG/NS 250 ML 500 MG/250 ML BAG 250 MG IVPB (11:11)
--- NOTE | 2023-09-19 12:35 | PM.IMPN ---
Progress Note: A&P Assessment and Plan (1) Acute hypoxic respiratory failure: Code(s): J96.01 - Acute respiratory failure with hypoxia Status: Acute Assessment and Plan: Sat 86% on RA upon arrival to the ED, now requiring supplemental O2 - NC at 2L CXR: Right basilar airspace opacity, consistent with atelectasis versus pneumonia. CTA of chest: No evidence of pulmonary embolus, aortic dissection, or aortic aneurysm. Right lower lobe pneumonia. Mildly enlarged mediastinal and hilar lymph nodes, presumably reactive. Stable subcentimeter biapical pulmonary nodules, likely benign. Influenza B+. hypoxia likely secondary to multiple etiologies - PNA, flu, and COPD exacerbation. Assess at d/c for need for continuation of supplemental O2 at home. (2) Influenza B: Code(s): J10.1 - Influenza due to other identified influenza virus with other respiratory manifestations Status: Acute Assessment and Plan: Symptom onset - Friday, 09/15 tested positive for Flu B on - 09/18 complicating comorbidities - COPD CXR: right basilar pneumonia Unable to start Tamiflu, patient is on day 4 of symptoms. Continue supportive care: inhalers/nebs, TYL prn for fever/pain, zofran prn, lozenge prn, tessalon perles prn. monitor VS/O2 and monitor daily labs. (3) Pneumonia: Qualifiers: Laterality: right Lung location: lower lobe of lung Pneumonia type: due to unspecified organism Qualified Code(s): J18.9 - Pneumonia, unspecified organism Code(s): J18.9 - Pneumonia, unspecified organism Status: Acute Assessment and Plan: CXR: Right basilar pneumonia. Complicated by COPD and Flu B. Add sputum culture and MRSA screening. Start CAP treatment -ceftriaxone and azithromycin. Currently requiring supplemental O2, assess for continued need at discharge. Continue supportive care. (4) COPD exacerbation: Code(s): J44.1 - Chronic obstructive pulmonary disease with (acute) exacerbation Status: Acute Assessment and Plan: Continue home inhalers and nebulizers. Currently on prednisone 50 p.o., continue. Requiring supplemental O2. (5) Acute hyponatremia: Code(s): E87.1 - Hypo-osmolality and hyponatremia Status: Acute Assessment and Plan: Na 128. Fluid resuscitated with NS x2L. checking serum osmolality, urine sodium, and urine osmolality. recheck in AM. Subjective Date/time seen: 09/19/23 12:35 Interval history: Patient states that he is not having any difficulty breathing but does feel increased fatigue and currently is still coughing. He does have a productive cough and describes the sputum as a white to clear color. He was having shortness of breath when he presented to the hospital but oxygen supplementation is helping him with that. Patient recently got off home oxygen and quit smoking approximately 5 months ago. When he was using home oxygen he required 2 L. He may need home O2 evaluation at the end of hospital stay. Exam Narrative: GENERAL: Comfortable, no acute distress HENMT: moist mucous membranes EYES: EOM intact b/l NECK: no lymphadenopathy RESPIRATORY: diffuse crackles CARDIO: RRR GI: soft, nontender, bowel sounds present SKIN: no rashes EXTREMITIES: no edema, redness or tenderness Objective Data Vital Signs Vital Signs: Vital Signs - 24 hr 09/18/23 12:50 09/18/23 13:24 09/18/23 14:07 Temperature 100.3 F H Pulse Rate 92 88 90 Respiratory Rate 20 21 H 26 H Blood Pressure 111/42 L 106/56 L Pulse Oximetry 93 100 97 Oxygen Delivery Oxygen Flow Rate 09/18/23 14:56 09/18/23 15:09 09/18/23 16:13 Temperature 99.5 F 99.7 F H Pulse Rate 93 92 90 Respiratory Rate 22 H 20 18 Blood Pressure 110/66 110/66 105/46 L Pulse Oximetry 97 97 96 Oxygen Delivery Oxygen Flow Rate 09/18/23 16:03 09/18/23 20:28 09/18/23 20:00 Temperature 99.0 F Pulse Rate 89 87
[2023-09-19] MEDS: IPRATROPIUM BR 0.02% INH SOLN 0.5 MG/2.5 ML VIAL INHALATION (21:07)
[2023-09-19] MEDS: MELATONIN 3 MG TABLET PO (21:51)
[2023-09-20] VITALS (10 sets, daily range): BP systolic 119–120; BP diastolic 63–67; PULSE 64–80; RESP 12–20; TEMP 36.2; O2SAT 92–100
[2023-09-20 05:58] LABS: Alanine Aminotransferase 29 U/L (6-50); Albumin Level 3.6 g/dL (3.5-5.1); Alkaline Phosphatase 63 U/L (38-126); Anion Gap 7 mmol/L (8-16); Aspartate Amino Transferase 53 U/L (17-59); Bilirubin,Total 0.5 mg/dL (0.2-1.3); Blood Urea Nitrogen 15 mg/dL (9-20); Calcium 8.2 mg/dL (8.4-10.2); Carbon Dioxide 28 mmol/L (22-30); Chloride 92 mmol/L (98-107); Estimated CRCL calculation 105 ml/min; Estimated Glomerular Filt Rate > 60; Glucose 103 mg/dL (65-110); Potassium 4.1 mmol/L (3.4-5.0); Sodium 127 mmol/L (137-145)
[2023-09-20] MEDS: predniSONE 50 MG TABLET PO (09:06)
[2023-09-20] MEDS: BENZONATATE 100 MG CAPSULE PO ×3 (09:06→17:37)
[2023-09-20] MEDS: ASPIRIN 81 MG ENTERIC TABLET PO (09:06)
[2023-09-20] MEDS: SODIUM CHLORIDE 500 MG TABLET PO ×2 (09:06→17:37)
[2023-09-20 12:02] LABS: Sodium 128 mmol/L (137-145)
[2023-09-20] MEDS: SODIUM CHLORIDE 0.9% IV 1,000 ML 150 ML IV CONT (12:38)
[2023-09-20] MEDS: AZITHROMYCIN 500 MG/NS 250 ML 500 MG/250 ML BAG 250 MG IVPB (13:14)
--- NOTE | 2023-09-20 14:05 | PM.DS ---
DS: Admitting Diagnosis Discharge Date 09/20/23 Admitting Diagnosis Flu B, hypoxia DS: Discharge Diagnosis Discharge Diagnosis (1) Acute hypoxic respiratory failure: Code(s): J96.01 - Acute respiratory failure with hypoxia Status: Acute (2) Influenza B: Code(s): J10.1 - Influenza due to other identified influenza virus with other respiratory manifestations Status: Acute (3) Pneumonia: Qualifiers: Laterality: right Lung location: lower lobe of lung Pneumonia type: due to unspecified organism Qualified Code(s): J18.9 - Pneumonia, unspecified organism Code(s): J18.9 - Pneumonia, unspecified organism Status: Acute (4) COPD exacerbation: Code(s): J44.1 - Chronic obstructive pulmonary disease with (acute) exacerbation Status: Acute (5) Acute hyponatremia: Code(s): E87.1 - Hypo-osmolality and hyponatremia Status: Acute DS: Summary Hospital Course Hospital Course: 72-year-old male with a past medical history of COPD former smoker presented to the ED on 09/18/2023 due to productive cough and shortness of breath. Patient's symptoms began approximately 3-4 days prior to ED presentation. Symptoms worsened over that time. Patient has increased sputum production and states that is white to clear. He used to be on oxygen of 2 L at home but was able to come off of oxygen in May of 2023 after he stops smoking. Patient's serology came back positive for influenza B and he was also found to have a sodium of 128. Chest x-ray showing right basilar airspace opacity, consistent with atelectasis versus pneumonia. CTA of the chest showed no PE, right lower lobe pneumonia, and mildly enlarged mediastinal lymph nodes that were presumably reactive. He was started on ceftriaxone and azithromycin. MRSA swab came back negative. Sputum culture came back with Gram-positive cocci in pairs suggestive of pneumococci. Patient's sodium remained 128 during his hospital stay. Patient felt much better after antibiotic therapy and nebulizer treatments. Patient was feeling back to himself and had a lingering cough. Patient was given IV fluids during his hospital stay as well. It was discussed with him that infections can cause as lower sodium levels. He did not have any symptoms reflecting his low sodium such as increased fatigue, dizziness, lightheadedness, nausea, vomiting or visual changes. Patient stated that due to the holiday he would very much like to be discharged due to patient's stability I agreed to discharge with a follow-up lab in 5-7 days. Labs and vital signs are stable and he is medically cleared for discharge. Time Spent with Patient Time attestation: Total time spent providing and/or coordinating discharge services: Exam Narrative: GENERAL: Comfortable, no acute distress HENMT: moist mucous membranes EYES: EOM intact b/l NECK: no lymphadenopathy RESPIRATORY: clear to auscultation CARDIO: RRR GI: soft, nontender, bowel sounds present SKIN: no rashes EXTREMITIES: no edema, redness or tenderness DS: Data Data Completed and Pending Labs on day of discharge: Labs from last 24 hours 09/20/23 09/20/23 11:36 05:12 Sodium 128 L 127 L Potassium 4.1 Chloride 92 L Carbon Dioxide 28 Anion Gap 7 L BUN 15 Creatinine 0.60 L Estim Creat Clear Calc 105 Estimated GFR > 60 Glucose 103 Calcium 8.2 L Total Bilirubin 0.5 AST 53 ALT 29 Alkaline Phosphatase 63 Total Protein 7.0 Albumin 3.6 Preliminary micro results at discharge 09/18/23 18:45 Sputum Culture - Preliminary Sputum 09/18/23 09:15 Blood Culture - Preliminary Blood 09/18/23 09:15 Blood Culture - Preliminary Blood Discharge Plan Discharge Attending physician on discharge: Jeff Bobo Discharging Clinician: Shannon Perez Patient Disposition: Home, Self-Care Activity: as tolerated Diet: regular Discharge In
[2023-09-20] MEDS: IPRATROPIUM BR 0.02% INH SOLN 0.5 MG/2.5 ML VIAL INHALATION (14:46)
[2023-09-20] MEDS: ALBUTEROL SULFATE NEB 2.5 MG/3 ML INH INHALATION (14:46)
[2023-09-23 07:18] LABS: Osmolality, Urine 732 mOsm/kg (50-1200)
== END 2023-09-20 18:15 | disposition home or self-care (01) | DRG 193 ==
LOC: ANHED 10:21 → ANH3MEDSUR 14:44 → ANH2MED 15:14
PROVIDERS: Student in an Organized Health Care Education/Training Program; Admitting Provider Internal Medicine; Emergency Provider Physician Assistant; PCP Family Medicine; Visit Provider Internal Medicine Critical Care Medicine
DX: J10.08 Influenza due to other identified influenza virus with other specified pneumonia (principal); J96.01 Acute respiratory failure with hypoxia; E87.1 Hypo-osmolality and hyponatremia; J13 Pneumonia due to Streptococcus pneumoniae; J44.0 Chronic obstructive pulmonary disease with (acute) lower respiratory infection; J44.1 Chronic obstructive pulmonary disease with (acute) exacerbation; E78.5 Hyperlipidemia, unspecified; C61 Malignant neoplasm of prostate; Z20.822 Contact with and (suspected) exposure to COVID-19; Z87.891 Personal history of nicotine dependence; Z86.010 Personal history of colon polyps
CPT/HCPCS: 36415; 71045; 71275; 80048; 80053; 81001; 83605; 83880; 83930; 83935; 84295; 84300; 84484; 85025; 85027; 85380; 85610; 85730; 86140; 87040; 87070; 87081; 87205; 87637; 93005; 94640; 96365; 96366; 96367; 99285; A9270; G0378; J0456; J0696; J1650; J7030; Q9967

== ENCOUNTER 2023-10-14 09:23 | Outpatient (CLI) | payer MEDICARE, SELFPAY ==
--- NOTE | ~2023-10-14 | CT_ITS ---
CT Scan of the Chest without Contrast: Clinical Indication: Lung cancer screening, personal history of nicotine dependence Technique: Contiguous sections were acquired throughout the chest without intravenous contrast. Dose reduction technique was used on this scan by utilizing automated exposure control and iterative recon struction technique. The dose-length product (DLP) was 141.97 mGy-cm. COMPARISON: 09/18/2023 Findings: There is no evidence of any significant mediastinal, hilar or axillary lymphadenopathy. Large calcifi ed mediastinal lymph nodes are present. There are atherosclerotic changes of the aorta and coronary a rteries. There is no evidence of pleural or pericardial effusion. 6 mm right lower lobe pulmonary nodule noted (axial image 73). There is minimal biapical scarring. Images through the upper abdomen reveal also splenic granulomas. Impression: Lung RADS 2: Benign appearance. 12 month follow-up screening CT advised. Reviewed, dictated and finalized at [facility]. [employer] Impression: Lung RADS 2: Benign appearance. 12 month follow-up screening CT advised.
== END 2023-10-14 09:24 | disposition home or self-care (01) ==
PROVIDERS: PCP Family Medicine; Visit Provider Nurse Practitioner Family
DX: Z12.2 Encounter for screening for malignant neoplasm of respiratory organs (principal); Z87.891 Personal history of nicotine dependence
CPT/HCPCS: 71271

== ENCOUNTER 2023-11-12 01:28 | Day surgery (SDC) | payer MEDICARE, SELFPAY ==
[2023-10-16 13:06] VITALS: BMI 26.5
--- NOTE | 2023-11-10 10:58 | SUR.PREOP ---
Patient called regarding upcoming procedure. Reviewed preop instructions, appointment times, and procedure prep.
[2023-11-12 08:33] VITALS: BP 129/61; PULSE 79; RESP 18; O2SAT 92
[2023-11-12] MEDS: LACTATED RINGERS 1,000 ML 150 ML IV CONT (08:47)
--- NOTE | 2023-11-12 09:22 | WPDANESEPPF ---
Anes - Initial Pre Proc Eval Procedure: Operation Date: 11/12/23 10:00 Proposed Procedures p Colonoscopy - Edmundo Ramirez MD Date/Time: 11/12/23 09:22 Surgeon: Edmundo Ramirez MD Pre Op Diagnosis: hx of colon polyps Patient Data Age: 73 Gender: M Height: 1.83 m Weight: 88.8 kg Last Vital Signs Pulse 79 11/12/23 08:33 Resp 18 11/12/23 08:33 BP 129/61 11/12/23 08:33 Pulse Ox 92 11/12/23 08:33 O2 Del Method Room Air 11/12/23 08:33 Allergies Allergy/AdvReac Type Severity Reaction Status Date / Time codeine Allergy Mild Other Verified 10/16/23 13:04 Home Medications Medication Instructions Recorded Confirmed Type aspirin 81 mg tablet,delayed 81 mg PO DAILY 09/30/19 10/16/23 History release (Adult Low Dose Aspirin) tadalafil 20 mg tablet (Cialis) 20 mg PO DAILY PRN sexual activity 03/14/22 10/16/23 Rx #30 tabs albuterol sulfate 90 mcg/actuation 2 inh inhalation Q4-6H PRN 04/11/23 10/16/23 Rx aerosol inhaler shortness of breath or wheezing #8.5 grams atorvastatin 10 mg tablet 10 mg PO .QOD #45 tabs 05/23/23 10/16/23 Rx Anoro Ellipta 62.5 mcg-25 1 inh inhalation Q24H #60 ea 10/27/23 Rx mcg/actuation powder for inhalation (umeclidinium-vilanterol) Patient hx anesthesia problems: none Family hx anesthesia problems: none Results Review: All pre-operative results and documents have been reviewed as part of the pre-operative evaluation. [facility] Past Medical History Medical History Community acquired pneumonia (~10/2021) COPD with asthma Erectile dysfunction History of colon polyps History of colon polyps Hyperlipidemia Positive colorectal cancer screening using Cologuard test Prostate cancer (~01/2022) Pulmonary nodules stable on repeat CTs Wears glasses Family History Family History Mother Family history of malignant melanoma Social History Social History Smoking packs per day: 1 Smoking cigarettes per day: 20.0 Years smoked: 52 Smoking pack-years: 52.00 Smoking status: Former smoker Tobacco type: cigarettes Smoking end date: 06/05/23 Additional smoking assessment comments: 1 pack per day for approx 50 years Alcohol intake: current Drinks per week: 10 Substance use: never Substance use type: does not use Do You Feel Safe in your Home?: Yes Lack of Transportation: No Lack of Food: Never True Current Housing: I Have Housing Concerned About Future Housing: No Difficulty Paying Gas/Electric Bills: No Difficulty Paying for Meds: No Currently Unemployed: No Education: High School Diploma/GED Difficulty w/ Childcare or Family Care: No Living arrangements: other Additional living arrangements comments: with sp Occupation/Education: retired Gender identity (if verbalized by the patient): Male Sexual Orientation (if Verbalized by the Patient): Straight or Heterosexual Spiritual care concerns: No Agree to blood products: Yes Anes - Eval Final PreProcedure Day of Procedure 11/12/23 09:22 Patient weight: normal Heart: regular rate and rhythm Lungs: clear to auscultation Airway: Mallampati scale class II Neurological: alert and oriented Last oral intake: >/= 8 hours ASA classification: III Emergent: no Anesthetic plan: proceed Anesthesia type and monitoring: general GIVS and standard monitoring Results Review: All pre-operative results and documents have been reviewed as part of the pre-operative evaluation. Informed Consent: The patient's anesthetic plan and its attendant risks and benefits were discussed with the patient/family/POA. Questions were solicited and answers provided to the satisfaction of the patient/family/POA.
--- NOTE | 2023-11-12 09:36 | PM.HPGS ---
History of Present Illness History of Present Illness Consent: Risks, benefits, and alternatives have been discussed and questions answered. Patient agrees to proceed with procedure. Chief complaint: hx of colon polyps Narrative: Navi Farris is a 73 year old male with colon polyps 2 years ago Review of Systems Constitutional: Constitutional: Denies headache(s) and Denies weakness Eyes: Eyes: Denies blurry vision ENT: Reports Normal hearing present, Denies headache(s) and Denies neck pain Cardiovascular: Cardiovascular: Denies chest pain and Denies dyspnea Respiratory: Respiratory: Denies dyspnea Gastrointestinal: Gastrointestinal: Reports no additional gastrointestinal complaints Genitourinary: Genitourinary: Denies dysuria Musculoskeletal: Musculoskeletal: Denies neck pain Integumentary/Breasts: Skin/Breast: Denies dry skin Neurologic: Reports Normal hearing present, Denies headache(s) and Denies weakness Psychiatric: Psychiatric: Denies anxiety Endocrine: Endocrine: Denies change in body appearance Hematologic/Lymphatic: Hematologic/Lymphatic: Denies easy bleeding Allergic/Immunologic: Allergic/Immunologic: Denies urticaria PMFSH Past Medical History Medical History (Updated 11/12/23 @ 09:37 by Edmundo Ramirez MD) Community acquired pneumonia (~10/2021) COPD with asthma Erectile dysfunction History of colon polyps History of colon polyps Hyperlipidemia Positive colorectal cancer screening using Cologuard test Prostate cancer (~01/2022) Pulmonary nodules stable on repeat CTs Wears glasses Family History Family History Mother Family history of malignant melanoma Social History Social History Smoking packs per day: 1 Smoking cigarettes per day: 20.0 Years smoked: 52 Smoking pack-years: 52.00 Smoking status: Former smoker Tobacco type: cigarettes Smoking end date: 06/05/23 Additional smoking assessment comments: 1 pack per day for approx 50 years Alcohol intake: current Drinks per week: 10 Substance use: never Substance use type: does not use Do You Feel Safe in your Home?: Yes Lack of Transportation: No Lack of Food: Never True Current Housing: I Have Housing Concerned About Future Housing: No Difficulty Paying Gas/Electric Bills: No Difficulty Paying for Meds: No Currently Unemployed: No Education: High School Diploma/GED Difficulty w/ Childcare or Family Care: No Living arrangements: other Additional living arrangements comments: with sp Occupation/Education: retired Gender identity (if verbalized by the patient): Male Sexual Orientation (if Verbalized by the Patient): Straight or Heterosexual Spiritual care concerns: No Agree to blood products: Yes Meds Home Medications and Allergies Home Medications Medication Instructions Recorded Confirmed Type aspirin 81 mg tablet,delayed 81 mg PO DAILY 09/30/19 10/16/23 History release (Adult Low Dose Aspirin) tadalafil 20 mg tablet (Cialis) 20 mg PO DAILY PRN sexual activity 03/14/22 10/16/23 Rx #30 tabs albuterol sulfate 90 mcg/actuation 2 inh inhalation Q4-6H PRN 04/11/23 10/16/23 Rx aerosol inhaler shortness of breath or wheezing #8.5 grams atorvastatin 10 mg tablet 10 mg PO .QOD #45 tabs 05/23/23 10/16/23 Rx Anoro Ellipta 62.5 mcg-25 1 inh inhalation Q24H #60 ea 10/27/23 Rx mcg/actuation powder for inhalation (umeclidinium-vilanterol) Allergies Allergy/AdvReac Type Severity Reaction Status Date / Time codeine Allergy Mild Other Verified 10/16/23 13:04 Vital Signs Vital Signs - 24 hr 11/12/23 08:33 Pulse Rate 79 Respiratory Rate 18 Blood Pressure 129/61 Pulse Oximetry 92 Oxygen Delivery Room Air Exam Const: General: comfortable and no acute distress HENMT: Face/Nose/Sinus: Normal nares present
[2023-11-12 10:04] VITALS: BP 111/62; PULSE 67; RESP 22; O2SAT 92
[2023-11-12 10:14] VITALS: BP 118/64; PULSE 68; RESP 22; O2SAT 92
== END 2023-11-12 10:29 | disposition home or self-care (01) ==
PROVIDERS: PCP Family Medicine; Visit Provider Internal Medicine Gastroenterology
PROC: 0DJD8ZZ Inspection of Lower Intestinal Tract, Via Natural or Artificial Opening Endoscopic (ICD-10-PCS; CPT 45378; principal; 2023-11-12 10:00)
DX: Z12.11 Encounter for screening for malignant neoplasm of colon (principal); D12.0 Benign neoplasm of cecum; D12.2 Benign neoplasm of ascending colon; K57.30 Diverticulosis of large intestine without perforation or abscess without bleeding; K64.8 Other hemorrhoids; J44.9 Chronic obstructive pulmonary disease, unspecified; E78.5 Hyperlipidemia, unspecified; Z85.46 Personal history of malignant neoplasm of prostate; Z87.891 Personal history of nicotine dependence; Z79.82 Long term (current) use of aspirin; Z79.51 Long term (current) use of inhaled steroids
CPT/HCPCS: 45385; 88305; J2704; J7120

== ENCOUNTER 2023-11-17 14:38 | Outpatient (CLI) | payer MEDICARE, SELFPAY ==
--- NOTE | ~2023-11-17 | XR_ITS ---
Clinical Indication: Cough PA and lateral views of the chest: Comparison: 09/18/2023 Findings: The lungs are clear, without evidence of focal consolidation or pleural effusion. Cardiome diastinal silhouette is stable. Large calcified mediastinal lymph nodes are unchanged. Bones and soft tissues are unremarkable. Impression: Clear lungs. Stable large calcified mediastinal lymph nodes. Reviewed, dictated and finalized at location . [employer] Impression: Clear lungs. Stable large calcified mediastinal lymph nodes.
== END 2023-11-17 14:39 | disposition home or self-care (01) ==
PROVIDERS: PCP Family Medicine; Visit Provider Nurse Practitioner Family
DX: R05.9 Cough, unspecified (principal)
CPT/HCPCS: 71046

== ENCOUNTER 2024-04-07 10:21 | Outpatient (CLI) | payer MEDICARE, SELFPAY ==
--- NOTE | ~2024-04-07 | CT_ITS ---
CT Scan of the Chest without Contrast: Clinical Indication: Pulmonary nodule Technique: Contiguous sections were acquired throughout the chest without intravenous contrast. Dose reduction technique was used on this scan by utilizing automated exposure control and iterative recon struction technique. The dose-length product (DLP) was 118.59 mGy-cm. COMPARISON: 10/14/2023 Findings: There is no evidence of any significant mediastinal, hilar or axillary lymphadenopathy. Extensive sukhjinder cified mediastinal lymph nodes are present. There are atherosclerotic calcifications of the aorta. There is no evidence of pleural or pericardial effusion. The lungs are clear. No pulmonary nodules or infiltrates are noted. Images through the upper abdomen reveal no abnormalities. Impression: Clear lungs. Previously noted 6 mm right lower lobe pulmonary nodule is resolved. Reviewed, dictated and finalized at location . Impression: Clear lungs. Previously noted 6 mm right lower lobe pulmonary nodule is resolve d.
== END 2024-04-07 10:22 | disposition home or self-care (01) ==
PROVIDERS: PCP Family Medicine; Visit Provider Nurse Practitioner Family
DX: R91.1 Solitary pulmonary nodule (principal)
CPT/HCPCS: 71250

== ENCOUNTER 2025-05-03 10:09 | Outpatient (CLI) | payer MEDICARE, SELFPAY ==
--- NOTE | ~2025-05-03 | CT_ITS ---
CT Scan of the Chest without Contrast: Clinical Indication: Lung cancer screening, nicotine dependence Technique: Contiguous sections were acquired throughout the chest without intravenous contrast. Dose reduction technique was used on this scan by utilizing automated exposure control and iterative recon struction technique. The dose-length product (DLP) was 101.54 mGy-cm. COMPARISON: 04/07/2024 Findings: There is no evidence of any significant mediastinal, hilar or axillary lymphadenopathy. Large densely calcified mediastinal lymph nodes are present. The mediastinal soft tissues otherwise appear normal. There is no evidence of pleural or pericardial effusion. Stable 6 mm nodule in the posterior right upper lobe. Images through the upper abdomen reveal no abnormalities. Impression: Lung RADS 2: Benign appearance. 12 month follow-up screening CT advised. Reviewed, dictated and finalized at [facility]. Impression: Lung RADS 2: Benign appearance. 12 month follow-up screening CT advised.
--- OUTSIDE RECORDS SUMMARY | 2025-05-03 10:35 | XMS_ITS | Encounter Summary ---
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 Name Role Phone Unavailable Primary Care Provider Unavailabl e Encounter Details Date Type Department Care Team (Late st Contact Info) Description 02/05/2022 Lab Requisition [facility] Care Pathology Lab [address] [place] [address] Kim Reyna MD [address] [place], [place] [id number] Illness, unspecified Social History Tobacco Use Types Packs/Day Years Used Date Smoking Tobacco: Never Assessed Sex and Gender Information Value Date Recorded Sex Assigned at Not on file 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 Gender Identity Not on file Sexual Orientation Not on file documented as of this encounter Plan of Treatment Not on file documented as of this encounter Procedures Procedure Name Priority Date/Time Associated Diagnosis Comments PATH CONSULT ON REFERRED CASE Routine 01/31/2022 10:44 AM CDT Illness, unspecified documented in this encounter Results * PATH CONSULT ON REFERRED CASE (01/31/2022 10:44 AM CDT) Final Diagnosis PROSTATE, LLB, NEEDLE BIOPSY (OSC: [id number], A; 01/31/2022): - Prostatic adenocarcinoma, john score 3 + 3 = 6 (grade group 1), discontinuously involving 70% of core length PROSTATE, LLM, NEEDLE BIOPSY (OSC: [id number], B; 01/31/2022): - Prostatic adenocarcinoma, john score 3 + 3 = 6 (grade group 1), involving 10% of core length PROSTATE, LLA, NEEDLE BIOPSY (OSC: [id number], C; 01/31/2022): - Benign prostatic tissue PROSTATE, LB, NEEDLE BIOPSY (OSC: [id number], D; 01/31/2022): - Prostatic adenocarcinoma, john score 3 + 3 = 6 (grade group 1), involving 80% of core length PROSTATE, LM, NEEDLE BIOPSY (OSC: [id number], E; 01/31/2022): - Benign prostatic tissue PROSTATE, LA, NEEDLE BIOPSY (OSC: [id number], F; 01/31/2022): - Benign prostatic tissue PROSTATE, RB, NEEDLE BIOPSY (OSC: [id number], G; 01/31/2022): - Benign prostatic tissue PROSTATE, RM, NEEDLE BIOPSY (OSC: [id number], H; 01/31/2022): - Benign prostatic tissue PROSTATE, RA, NEEDLE BIOPSY (OSC: [id number], I; 01/31/2022): - Benign prostatic tissue PROSTATE, RLB, NEEDLE BIOPSY (OSC: [id number], J; 01/31/2022): - Benign prostatic tissue PROSTATE, RLM, NEEDLE BIOPSY (OSC: [id number], K; 01/31/2022): - Benign prostatic tissue PROSTATE, RLA, NEEDLE BIOPSY (OSC: [id number], L; 01/31/2022): - Benign prostatic tissue 02/05/2022 1:36 PM T [facility] PATHOLOGY LAB at 1336 CDT Clinical History PSA 8.6, PROSTATE VOLUME 41.8, T1C 02/05/2022 1:36 PM [facility] PATHOLOGY LAB Materials Received Received are three prepared slides from [facility] labeled [id number] (A1-C1). This is a 12-part prostate biopsy. All materials will be returned. 02/05/2022 1:36 PM CDT [facility] PATHOLOGY LAB Disclaimer The performance characteristics of all immunohistochemical and indirect immunofluorescence stains (if any) cited in this report were determined by the Histopathology Laboratory of [facility]. Some of these tests were developed by our own laboratory and have not been cleared or approved by the US Food and Drug Administration. The FDA does not require this test to go through premarket FDA review. These tests are used for clinical purposes. They should not be regarded as investigational or for research. This laboratory is certified under the Clinical Laboratory Improvement Amendments (CLIA) as qualified to perform high complexity clinical laboratory testing. This case has been personally reviewed and interpreted by the attending (teaching) pathologist. 02/05/2022 1:36 PM CDT [facility] PATHOLOGY LAB Case Report Surgical Pathology Report Case: [id number] Authorizing Provider: Kim Reyna MD Collected: 01/31/2022 10:44 AM Ordering Location: [facility] Pathology Lab Received: 02/05/2022 10:44 AM Pathologist: Anne Flores MD Specimen: Slide Consultation 02/05/2022 1:36 PM CDT [facility] PATHOLOGY LAB Embedded Images 02/05/2022 1:36 PM CDT [facility] PATHOLOGY LAB Pathology/Cytolo gy SURGICAL PATHOLOGY CONSULTATION AND REPORT ON REFERRED SLIDES PREPARED ELSEWHERE / Unknown 01/31/2022 10:44 AM CDT 02/05/2022 10:44 AM CDT us Kim Reyna MD LAB - PATHOLOGY/CYTOLOGY ORDERAB LES Final Result [facility] PATHOLOGY LAB [address] [place], [place] [address] [phone] documented in this encounter Visit Diagnoses Diagnosis Illness, unspecified documented in this encounter
--- OUTSIDE RECORDS SUMMARY | 2025-05-03 10:35 | XMS_ITS | Clinical Summary ---
Author Organization [facility] Address [address] [place] [address] Care Team Providers Care Student Outreach Coordinator Name Role Phone Unavailable Primary Care Provider Unavailabl e Source Comments [facility],non-owned Affiliates and Associated Physician Practices is amultiple site organization consisting of ambulatory clinics and hospital sitesin [place], [place], [place] and [place]. This disclosure is being madepursuant to the Care Everywhere program and may not contain all information available regarding this patient. 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 Gender Identity Not on file Sexual Orientation Not on file Plan of Treatment Health Maintenance Due Date Last Done Comments COLOGUARD (AGES 45-75) - COL ON CA SCREENING 1951 COLON MONITORING 1950 COLONOSCOPY - COLON CA SCREENING 1951 CT COLONOGRAPHY - COLON CA SCREENING 1950 Colorectal Cancer Screening 1950 FIT - COLON CA SCREENING 1950 FLEX SIG - COLON CA SCREENING 1950 LIPID TESTING 1950 HEPATITIS C SCREENING 09/23/1969 DTAP/TDAP/TD VACCINES (1 - Tdap) 1970 PNEUMOCOCCAL VACCINE 50+ (1 of 1 - PCV) 2001 ZOSTER VACCINE (1 of 2) 2001 COVID-19 VACCINE ( - 2023-2 5 season) 2024 DEPRESSION SCREENING 09/29/2024 MEDICARE AWV CALENDAR YEAR 2024 INFLUENZA VACCINE (#1) 2025 Respiratory Syncytial Virus (RSV) Vaccine Pt: or over 60 yrs (1 - 1-dose 75+ series) 2026 HEPATITIS B VACCINE Aged Out No longe r eligible based on patient's age to complete this topic HIB VACCINE Aged Out No longer eligi ble based on patient's age to complete this topic HPV VACCINE Aged Out No longer eligi ble based on patient's age to complete this topic MENINGOCOCCAL (Group B) VACC INE SHARED DECISION-MAKING Aged Out No longer eligibl e based on patient's age to complete this topic MENINGOCOCCAL GROUPS A/C/Y/W VACCINE Aged Out No longer eligible b ased on patient's age to complete this topic Insurance [facility] MANAGED MEDICARE ADV Member Subscriber Plan / Payer (Ef fective for All Dates) Name:Raul Farris Sr Relation to Subscriber:Self Name:RAUL FARRIS Payer ID:[id number] (NAIC) Type:Medicare-Managed Care Address: [address] [employer] MANAGED MEDICARE ADV [address] [place] [id number] SELF PAY NO INSURANCE Member Subscriber Plan / Payer (Ef fective for All Dates) Name:Raul Farris Sr Member ID:Not on file Relation to Subscriber:Not on file Name:RAUL FARRIS Subscriber ID:Not on file Address: [address] [place] [place] [address] Payer ID:Not on file Group ID:Not on file Type:Self Pay Address: [facility] MANAGED MEDICARE ADV SELF PAY NO INSURANCE Member Subscriber Plan / Payer (Ef fective for All Dates) Name:Raul Farris Sr Member ID:Not on file Relation to Subscriber:Not on file Name:RAUL FARRIS Subscriber ID:Not on file Address: [address] [place] [place] [address] Payer ID:Not on file Group ID:Not on file Type:Self Pay Address: [facility] MEDICARE ADV * Guarantor: RAUL FARRIS Account Type Relation to Patient Date of Phone Billing Address Personal/Family Spouse [address] [place] [address] SELF PAY NO INSURANCE Member Subscriber Plan / Payer (Ef fective for All Dates) Name:Raul Farris Sr Member ID:Not on file Relation to Subscriber:Not on file Name:RAUL FARRIS Subscriber ID:Not on file Address: [place] [place] [address] Payer ID:Not on file Group ID:Not on file Type:Self Pay Address: [facility] MEDICARE ADV SELF PAY NO INSURANCE Member Subscriber Plan / Payer (Ef fective for All Dates) Name:Raul Farris Sr Member ID:Not on file Relation to Subscriber:Not on file Name:RAUL FARRIS Subscriber ID:Not on file Address: [place] [place] [address] Payer ID:Not on file Group ID:Not on file Type:Self Pay Address: [facility] MANAGED MEDICARE ADV * Guarantor: RAUL FARRIS Account Type Relation to Patient Date of Phone Billing Address Personal/Family Spouse [place] [place] [place] [address] SELF PAY NO INSURANCE Member Subscriber Plan / Payer (Ef fective for All Dates) Name:Raul Farris Sr Member ID:Not on file Relation to Subscriber:Not on file Name:RAUL FARRIS Subscriber ID:Not on file Address: [address] [place] [address] Payer ID:Not on file Group ID:Not on file Type:Self Pay Address: [facility] MANAGED MEDICARE ADV SELF PAY NO INSURANCE Member Subscriber Plan / Payer (Ef fective for All Dates) Name:Raul Farris Sr Member ID:Not on file Relation to Subscriber:Not on file Name:RAUL FARRIS Subscriber ID:Not on file Address: [place] [address] Payer ID:Not on file Group ID:Not on file Type:Self Pay Address: [facility] MANAGED MEDICARE ADV
== END 2025-05-03 10:10 | disposition home or self-care (01) ==
PROVIDERS: PCP Family Medicine; Visit Provider Nurse Practitioner Family
DX: Z12.2 Encounter for screening for malignant neoplasm of respiratory organs (principal); Z87.891 Personal history of nicotine dependence
CPT/HCPCS: 71271